=== PATIENT | male | born 1950 | race Two or more races ===

== ENCOUNTER → 2024-10-08 | Day surgery (SDC) | payer OTHER ==
[~2024-10-08] MED LIST: DIPHENHYDRAMINE HCL 50 MG/ML VIAL 1ML IV ONE; MIDAZOLAM HCL 2 MG/2 ML VIAL IV ONE; ONDANSETRON HCL 2 MG/ML VIAL IV ONE; fentaNYL CITRATE 50 MCG/ML AMPUL IV PUSH ONE
== END | disposition home or self-care (01) ==
LOC: ADM 10-02 09:45 → AMB-ENDOS 06:40 → CIR.AMB 09:45
PROVIDERS: ATTEND Colon & Rectal Surgery
DX: D12.2 Benign neoplasm of ascending colon (principal); D12.4 Benign neoplasm of descending colon; K63.5 Polyp of colon; K57.30 Diverticulosis of large intestine without perforation or abscess without bleeding

== ENCOUNTER 2024-12-11 08:00 | Outpatient (CLI) | payer OTHER ==
[2024-12-11] MEDS ORDERED: RAZADYNE ER16 MG PO (14:18)
[2024-12-11] MEDS ORDERED: NIFEDIPINE20 MG PO (14:19)
[2024-12-11] MEDS ORDERED: EZALLOR SPRINKL20 MG PO (14:19)
[2024-12-11] MEDS ORDERED: AVAPRO300 MG PO (14:19)
[2024-12-11] MEDS ORDERED: TOPROL XL200 MG (14:20)
[2024-12-11 14:37] VITALS: BP 126/66
== END 2024-12-11 08:01 | disposition home or self-care (01) ==
LOC: EKG 08:00 → ADM 12:15 → CIR.AMB 12-17 07:00 → EDSTATUS 12-17 12:15
PROVIDERS: ATTEND Colon & Rectal Surgery
DX: R15.9 Full incontinence of feces (principal); R32 Unspecified urinary incontinence

== ENCOUNTER 2025-05-01 07:00 | Day surgery (SDC) | payer OTHER ==
[~2025-05-01 07:00] MED LIST changes: +AVAPRO300 MG PO; -DIPHENHYDRAMINE HCL 50 MG/ML VIAL 1ML IV ONE; +EZALLOR SPRINKL20 MG PO; -MIDAZOLAM HCL 2 MG/2 ML VIAL IV ONE; +NIFEDIPINE20 MG PO; -ONDANSETRON HCL 2 MG/ML VIAL IV ONE; +RAZADYNE ER16 MG PO; +TOPROL XL200 MG; -fentaNYL CITRATE 50 MCG/ML AMPUL IV PUSH ONE
[2025-05-01] MEDS ORDERED: MIDAZOLAM HCL 2 MG/2 ML VIAL IV ONE (13:15)
[2025-05-01] MEDS ORDERED: DIPHENHYDRAMINE HCL 50 MG/ML VIAL 1ML IV ONE (13:15)
== END 2025-05-01 14:20 | disposition home or self-care (01) ==
LOC: AMB-ENDOS 07:00
PROVIDERS: ATTEND Colon & Rectal Surgery
DX: D12.5 Benign neoplasm of sigmoid colon (principal); K63.5 Polyp of colon